=== PATIENT | female | born 1995 | race Caucasian/White ===

== ENCOUNTER 2016-05-31 14:14 | Emergency (ER) | payer OTHER ==
--- NOTE | 2016-05-31 17:04 | ED CLINICAL REPORT ---
Clinical Report - Physicians/Mid Levels [facility] [address] [place] [place] [address] 05/31/2016 14:15 [id number] Time Seen: 15:29 May 31 2016. Arrived- By private vehicle. HISTORY OF PRESENT ILLNESS Chief Complaint: BACK PAIN. It is described as being mild and in the area of the lower lumbar spine. Quality not described as "pain". Onset was just prior to arrival and it is still present. No bowel dysfunction or sensory loss. Additional history - Reports while attempting to go from sitting to standing position today, Developed pain to her back, cramping sensation. He has been constant. Reports pain worse with movement. Patient denies an injury. REVIEW OF SYSTEMS No fever, chills, headache, cough or difficulty breathing. No vomiting, diarrhea, urinary frequency or hematuria. All systems otherwise negative, except as recorded above. PAST HISTORY Has not had a prior back injury. Has not had prior back pain. Problems: Biliary Colic. Hyponatremia. Abdominal Pain. Gastroesophageal Reflux. Chest Pain. Additional Surgeries: no known surgeries. Medications: None. Allergies: No Known Drug Allergy. SOCIAL HISTORY Never smoker. Alcohol use. No drug use. Not an IV drug user. ADDITIONAL NOTES The nursing notes have been reviewed. PHYSICAL EXAM Vital Signs: 05/31/2016 14:40 BP: 121/68. HR: 88. RR: 16. O2 saturation: 100%. Temp: 98.2 F. Pain level now: 9/10. Appearance: Alert. HEENT: Normal external inspection. Neck: Normal inspection. Neck nontender. No vertebral tenderness. CVS: Normal heart rate and rhythm. Heart sounds normal. Respiratory: No respiratory distress. Breath sounds normal. No chest wall injury. Abdomen: Normal inspection. Soft. No abdominal tenderness. Back: Normal inspection. No tenderness. Soft tissue tenderness. No vertebral point tenderness. Skin: Skin warm. Normal skin color. Neuro: Oriented X 3. Mood/affect normal. No motor deficit. No sensory deficit. Normal gait. PROGRESS AND PROCEDURES Course of Care: patient here in the ER, with no red flags. Able to ambulate. At rest her pain is subsiding. She has no radiation of pain, no distal pain. Good distal range of motion. No history of IV drug abuse. No signs or concern for cauda equina, spinal cord abscess or mass. No concern for cystitis, symptoms are not consistent with such. No abdominal pain. Patient is stable. Patient/family counseled. Disposition: Discharged. Condition: good. CLINICAL IMPRESSION Sprain of the lumbar spine. INSTRUCTIONS Limit lifting. No strenuous activity. Do not work for three days. (HEAT). Prescription Medications: Hydrocodone/APAP 7.5mg / 325mg: take 1 orally every 6 hours as needed for pain. Dispense twelve (12). No refill. Valium 2 mg: take 1 orally every 12 hours for 5 days as needed for muscle spasm. Dispense ten (10). No refill. Substitution is permissible. OTC Medications: Motrin IB 200 mg (available over the counter): take 4 orally every 8 hours for 5 days, as needed for pain or swelling Follow-up: Follow up with your doctor in three. (Electronically signed by Melany Virk P.A.-C 05/31/2016 20:00)
--- NOTE | 2016-05-31 17:04 | ED ORDER SUMMARY ---
..... Patient: MAURA FERNÁNDEZ OrderSheet [facility] VisitID: [id number] [place] [address] 21y, F Registration Date/Time: 05/31/2016 ORDER SHEET Weight: 74.8 kg (stated) Allergies: No Known Drug Allergy GENERAL ORDERS: MEDICATION ORDERS: Valium PO 5 mg (HIGH ALERT MEDICATION, NOW) (14:54 05/31/2016 EKorolebeth P.A.-C) (14:58 Michael R.N.) Toradol IM 60 mg (NOW) (16:01 05/31/2016 EKoroleva P.A.-C) (16:06 Michael R.N.) IV FLUIDS: Clindamycin IV 900 mg/50mL (NOW) (16:47 05/31/2016 EKoroleva P.A.-C) (Cancelled: Other17:08 EKoroleva P.A.-C) ORDER SHEET NOTES: [Electronically signed by Maria E Casas R.N. (17:42 05/31/2016)] [Electronically signed by Melany Virk P.AMarcelo-C (20:00 05/31/2016)] [Electronically locked/signed by Maria E Casas R.N. (17:42 05/31/2016)]
--- NOTE | 2016-05-31 17:04 | ED NURSING NOTES ---
Clinical Report - Nurses [facility] [address] [place] [address] 05/31/2016 14:15 Patient: MAURA FERNÁNDEZ TRIAGE Triage time 14:40 May 31 2016. Acuity: LEVEL 4. Chief Complaint: BACK PAIN. 14:40 05/31/16. SEPSIS SCREEN: Sepsis Screen: negative. Negative (no infection suspected/documented). --14:45 Maria E Casas R.N. 14:40 05/31/16. BP: 121/68. HR: 88. RR: 16. O2 saturation: 100%. Temp: 98.2 F. Pain level now: 01/23. --14:45 Maria E Casas R.N. Weight: 74.8 kg stated. Height/Length: 62 inches Per Patient. BMI: 30.2. --14:39 Maria E Casas R.N. Medications None. --14:42 Maria E Casas R.N. Allergies No Known Drug Allergy. --14:42 Maria E Casas R.N. Medication/allergy information source: the patient. --14:45 Maria E Casas R.N. History Arrived by private vehicle. Historian: patient. Accompanied by friend. This started today. ( 730 am onset today. no falls or other trauma, just states in "locked up"). She has had trouble walking. No history of recent trauma. No numbness, weakness, tingling, fever or extremity pain. Treatment HEAD OF ACQUISITIONS: None. (hydrocodone). PAST MEDICAL HX: Last normal menstrual period- 1 weeks ago. SOCIAL HX: Never smoker. Occasional alcohol use. No drug use. No infectious disease exposure. ABUSE ASSESSMENT: No report of abuse. SELF HARM ASSESSMENT: A self harm assessment was performed. The patient answered "no" to the question "Have you recently felt down, depressed, or hopeless?", "Have you noticed less interest or pleasure in doing things?", "Do you have thoughts of harming or killing yourself?", "Are you here because you tried to hurt yourself?", "Have you ever tried to hurt yourself before today?", "Have you recently had thoughts about harming or killing others?" and "Do you have any dangerous items in your possession?". FALL RISK ASSESSMENT: Fall risk assessment completed. No fall risk identified. NUTRITIONAL RISK ASSESSMENT: The nutritional risk assessment revealed no deficiencies. FUNCTIONAL ASSESSMENT: Functional assessment: no impairments noted. LEARNING NEEDS ASSESSMENT: The learning needs assessment revealed no barriers. SKIN INTEGRITY ASSESSMENT: Skin integrity risk assessment completed. No skin integrity risk identified. --14:45 Maria E Casas R.N. PROBLEMS: Biliary Colic. Hyponatremia. Gastroesophageal Reflux. --14:42 Maria E Cassa R.N. ADDITIONAL SURGERIES: no known surgeries. Interventions ID band on patient. --14:45 MariaE Casas R.N. PHYSICAL ASSESSMENT 14:40 05/31/16. To room via wheelchair. Patient gowned. GENERAL / NEURO / PSYCH: Alert. Oriented X 4. Appears in pain. No numbness. RESPIRATORY: Respirations not labored. Chest nontender. Breath sounds within normal limits. GI / : Abdomen soft and nontender. EXTREMITIES: Sensation intact in extremities. ROM of extremities within normal limits. BACK: Normal inspection of the neck and back. Soft tissue tenderness. --14:48 Maria E Casas R.N. NURSING PROGRESS NOTES 14:40 05/31/16. The initial plan of care for this patient includes an assessment with efforts to address the presence of pain; impairment of the musculoskeletal system. This plan of care was discussed with the patient. Patient gowned. Reassurance given to the patient. Patient identifiers checked. Call light placed in reach. Side rails up x 1. Bed placed in lowest position. Brakes of bed on. Patient ready for evaluation. --14:49 Maria E Casas R.N. 14:58 05/31/2016 Valium (Diazepam) PO Tablets 5 mg given. Allergies verified, confirmed 5 rights and sedative warning given to the patient and patient's technical solutions director. --14:58 Maria E Casas R.N. 16:01 05/31/16. The patient has had no adverse reaction. Overall patient status is the same- she states feels the same. BACK: The patient reports lower back pain is still present. --16:01 Maria E Cassa R.N. 16:05 05/31/2016 Toradol (Ketorolac Tromethamine) IM 60 mg given. Given in the right gluteus antonella. Allergies verified and confirmed 5 rights. --16:06 Maria E Casas R.N. DISPOSITION / DISCHARGE 17:22 05/31/16. Condition at departure: improved and stable. The goals identified in the patient's plan of care were met. No learning barriers present. Discharge instructions provided and reviewed with the patient. Reviewed medication(s) side effects, precautions, dosing and course information. Prescription(s) given to the patient. Reviewed referral to a primary care physician for followup. Patient verbalized understanding. Written instructions provided in Malagasy. The patient was discharged home and accompanied by technical solutions director. She left the Emergency Department ambulatory and via private vehicle. Block Cableman driving. FALL RISK ASSESSMENT: Fall risk assessment completed. No fall risk identified. --17:41 Maria E Casas R.N. 17:22 05/31/16. BP: 116/76. HR: 88. RR: 16. O2 saturation: 100%. Temp: 98.6 F. Pain level now 5/10. --17:41 Maria E Casas R.N. Departure time: 17:May 31 2016. --17:41 Maria E Casas R.N. Locked/Released at 05/31/2016 17:42 by Maria E Casas R.N.
--- NOTE | 2016-05-31 17:04 | ED ORDER SUMMARY ---
..... Patient: MAURA FERNÁNDEZ OrderSheet [facility] VisitID: [id number] [place] [address] 21y, F Registration Date/Time: 05/31/2016 ORDER SHEET Weight: 74.8 kg (stated) Allergies: No Known Drug Allergy GENERAL ORDERS: MEDICATION ORDERS: Valium PO 5 mg (HIGH ALERT MEDICATION, NOW) (14:54 05/31/2016 EKorolebeth P.A.-C) (14:58 Michael R.N.) Toradol IM 60 mg (NOW) (16:01 05/31/2016 EKoroleva P.A.-C) (16:06 Michael R.N.) IV FLUIDS: Clindamycin IV 900 mg/50mL (NOW) (16:47 05/31/2016 EKoroleva P.A.-C) (Cancelled: Other17:08 EKoroleva P.A.-C) ORDER SHEET NOTES: [Electronically signed by Maria E Casas R.N. (17:42 05/31/2016)] [Electronically signed by Melany Virk P.AMarcelo-C (20:00 05/31/2016)] [Electronically locked/signed by Maria E Casas R.N. (17:42 05/31/2016)]
--- NOTE | 2016-05-31 17:04 | ED NURSING NOTES ---
Clinical Report - Nurses [facility] [address] [place] [address] 05/31/2016 14:15 Patient: MAURA FERNÁNDEZ TRIAGE Triage time 14:40 May 31 2016. Acuity: LEVEL 4. Chief Complaint: BACK PAIN. 14:40 05/31/16. SEPSIS SCREEN: Sepsis Screen: negative. Negative (no infection suspected/documented). --14:45 Maria E Casas R.N. 14:40 05/31/16. BP: 121/68. HR: 88. RR: 16. O2 saturation: 100%. Temp: 98.2 F. Pain level now: 01/23. --14:45 Maria E Casas R.N. Weight: 74.8 kg stated. Height/Length: 62 inches Per Patient. BMI: 30.2. --14:39 Maria E Casas R.N. Medications None. --14:42 Maria E Casas R.N. Allergies No Known Drug Allergy. --14:42 Maria E Casas R.N. Medication/allergy information source: the patient. --14:45 Maria E Casas R.N. History Arrived by private vehicle. Historian: patient. Accompanied by friend. This started today. ( 730 am onset today. no falls or other trauma, just states in "locked up"). She has had trouble walking. No history of recent trauma. No numbness, weakness, tingling, fever or extremity pain. Treatment DIESEL ENGINE MECHANIC APPRENTICE: None. (hydrocodone). PAST MEDICAL HX: Last normal menstrual period- 1 weeks ago. SOCIAL HX: Never smoker. Occasional alcohol use. No drug use. No infectious disease exposure. ABUSE ASSESSMENT: No report of abuse. SELF HARM ASSESSMENT: A self harm assessment was performed. The patient answered "no" to the question "Have you recently felt down, depressed, or hopeless?", "Have you noticed less interest or pleasure in doing things?", "Do you have thoughts of harming or killing yourself?", "Are you here because you tried to hurt yourself?", "Have you ever tried to hurt yourself before today?", "Have you recently had thoughts about harming or killing others?" and "Do you have any dangerous items in your possession?". FALL RISK ASSESSMENT: Fall risk assessment completed. No fall risk identified. NUTRITIONAL RISK ASSESSMENT: The nutritional risk assessment revealed no deficiencies. FUNCTIONAL ASSESSMENT: Functional assessment: no impairments noted. LEARNING NEEDS ASSESSMENT: The learning needs assessment revealed no barriers. SKIN INTEGRITY ASSESSMENT: Skin integrity risk assessment completed. No skin integrity risk identified. --14:45 Maria E Casas R.N. PROBLEMS: Biliary Colic. Hyponatremia. Gastroesophageal Reflux. --14:42 Maria E Casas R.N. ADDITIONAL SURGERIES: no known surgeries. Interventions ID band on patient. --14:45 Maria E Casas R.N. PHYSICAL ASSESSMENT 14:40 05/31/16. To room via wheelchair. Patient gowned. GENERAL / NEURO / PSYCH: Alert. Oriented X 4. Appears in pain. No numbness. RESPIRATORY: Respirations not labored. Chest nontender. Breath sounds within normal limits. GI / : Abdomen soft and nontender. EXTREMITIES: Sensation intact in extremities. ROM of extremities within normal limits. BACK: Normal inspection of the neck and back. Soft tissue tenderness. --14:48 Maria E Casas R.N. NURSING PROGRESS NOTES 14:40 05/31/16. The initial plan of care for this patient includes an assessment with efforts to address the presence of pain; impairment of the musculoskeletal system. This plan of care was discussed with the patient. Patient gowned. Reassurance given to the patient. Patient identifiers checked. Call light placed in reach. Side rails up x 1. Bed placed in lowest position. Brakes of bed on. Patient ready for evaluation. --14:49 Maria E Casas R.N. 14:58 05/31/2016 Valium (Diazepam) PO Tablets 5 mg given. Allergies verified, confirmed 5 rights and sedative warning given to the patient and patient's tribal judge. --14:58 Maria E Casas R.N. 16:01 05/31/16. The patient has had no adverse reaction. Overall patient status is the same- she states feels the same. BACK: The patient reports lower back pain is still present. --16:01 Maria E Casas R.N. 16:05 05/31/2016 Toradol (Ketorolac Tromethamine) IM 60 mg given. Given in the right gluteus antonella. Allergies verified and confirmed 5 rights. --16:06 Maria E Casas R.N. DISPOSITION / DISCHARGE 17:22 05/31/16. Condition at departure: improved and stable. The goals identified in the patient's plan of care were met. No learning barriers present. Discharge instructions provided and reviewed with the patient. Reviewed medication(s) side effects, precautions, dosing and course information. Prescription(s) given to the patient. Reviewed referral to a primary care physician for followup. Patient verbalized understanding. Written instructions provided in Algerian. The patient was discharged home and accompanied by tribal judge. She left the Emergency Department ambulatory and via private vehicle. Building Energy Retrofit Technician driving. FALL RISK ASSESSMENT: Fall risk assessment completed. No fall risk identified. --17:41 Maria E Casas R.N. 17:22 05/31/16. BP: 116/76. HR: 88. RR: 16. O2 saturation: 100%. Temp: 98.6 F. Pain level now 5/10. --17:41 Maria E Casas R.N. Departure time: 17:May 31 2016. --17:41 Maria E Casas R.N. Locked/Released at 05/31/2016 17:42 by Maria E Casas R.N.
--- NOTE | 2016-05-31 17:04 | ED CLINICAL REPORT ---
Clinical Report - Physicians/Mid Levels [facility] [address] [place] [address] 05/31/2016 14:15 [id number] Time Seen: 15:29 May 31 2016. Arrived- By private vehicle. HISTORY OF PRESENT ILLNESS Chief Complaint: BACK PAIN. It is described as being mild and in the area of the lower lumbar spine. Quality not described as "pain". Onset was just prior to arrival and it is still present. No bowel dysfunction or sensory loss. Additional history - Reports while attempting to go from sitting to standing position today, Developed pain to her back, cramping sensation. He has been constant. Reports pain worse with movement. Patient denies an injury. REVIEW OF SYSTEMS No fever, chills, headache, cough or difficulty breathing. No vomiting, diarrhea, urinary frequency or hematuria. All systems otherwise negative, except as recorded above. PAST HISTORY Has not had a prior back injury. Has not had prior back pain. Problems: Biliary Colic. Hyponatremia. Abdominal Pain. Gastroesophageal Reflux. Chest Pain. Additional Surgeries: no known surgeries. Medications: None. Allergies: No Known Drug Allergy. SOCIAL HISTORY Never smoker. Alcohol use. No drug use. Not an IV drug user. ADDITIONAL NOTES The nursing notes have been reviewed. PHYSICAL EXAM Vital Signs: 05/31/2016 14:40 BP: 121/68. HR: 88. RR: 16. O2 saturation: 100%. Temp: 98.2 F. Pain level now: 9/10. Appearance: Alert. HEENT: Normal external inspection. Neck: Normal inspection. Neck nontender. No vertebral tenderness. CVS: Normal heart rate and rhythm. Heart sounds normal. Respiratory: No respiratory distress. Breath sounds normal. No chest wall injury. Abdomen: Normal inspection. Soft. No abdominal tenderness. Back: Normal inspection. No tenderness. Soft tissue tenderness. No vertebral point tenderness. Skin: Skin warm. Normal skin color. Neuro: Oriented X 3. Mood/affect normal. No motor deficit. No sensory deficit. Normal gait. PROGRESS AND PROCEDURES Course of Care: patient here in the ER, with no red flags. Able to ambulate. At rest her pain is subsiding. She has no radiation of pain, no distal pain. Good distal range of motion. No history of IV drug abuse. No signs or concern for cauda equina, spinal cord abscess or mass. No concern for cystitis, symptoms are not consistent with such. No abdominal pain. Patient is stable. Patient/family counseled. Disposition: Discharged. Condition: good. CLINICAL IMPRESSION Sprain of the lumbar spine. INSTRUCTIONS Limit lifting. No strenuous activity. Do not work for three days. (HEAT). Prescription Medications: Hydrocodone/APAP 7.5mg / 325mg: take 1 orally every 6 hours as needed for pain. Dispense twelve (12). No refill. Valium 2 mg: take 1 orally every 12 hours for 5 days as needed for muscle spasm. Dispense ten (10). No refill. Substitution is permissible. OTC Medications: Motrin IB 200 mg (available over the counter): take 4 orally every 8 hours for 5 days, as needed for pain or swelling Follow-up: Follow up with your doctor in three. (Electronically signed by Melany Virk P.A.-C 05/31/2016 20:00)
--- NOTE | 2016-05-31 20:01 | ED MAR SUMMARY ---
..... Medication Administration Record [facility] [address] [place] [address] Patient: MAURA FERNÁNDEZ Visit ID: [id number] 21y, F Weight: 74.8 kg Height/Length: 62 in BMI: 30.2 ALLERGIES: No Known Drug Allergy Given 14:58 05/31/2016 Maria E Casas R.N. Medication Administered: VALIUM [PO] (DIAZEPAM), Dose: 5 mg Tablets PO. Medication Ordered: Valium PO 5 mg (HIGH ALERT MEDICATION, NOW). Given 16:05 05/31/2016 Maria E Casas R.N. Medication Administered: TORADOL [IM] (KETOROLAC TROMETHAMINE), Dose: 60 mg IM. Medication Ordered: Toradol IM 60 mg (NOW).
--- NOTE | 2016-05-31 20:01 | ED MAR SUMMARY ---
..... Medication Administration Record [facility] [address] [place] [address] Patient: MAURA FERNÁNDEZ Visit ID: [id number] 21y, F Weight: 74.8 kg Height/Length: 62 in BMI: 30.2 ALLERGIES: No Known Drug Allergy Given 14:58 05/31/2016 Maria E Casas R.N. Medication Administered: VALIUM [PO] (DIAZEPAM), Dose: 5 mg Tablets PO. Medication Ordered: Valium PO 5 mg (HIGH ALERT MEDICATION, NOW). Given 16:05 05/31/2016 Maria E Casas R.N. Medication Administered: TORADOL [IM] (KETOROLAC TROMETHAMINE), Dose: 60 mg IM. Medication Ordered: Toradol IM 60 mg (NOW).
--- NOTE | 2016-05-31 20:01 | ED MED RECONCILIATION SUMMARY ---
Patient: MAURA FERNÁNDEZ Medication Reconciliation Report [facility] VisitID: [id number] [place] [address] 21y, F Registration Date/Time: 05/31/2016 Weight: 74.8 kg Height/Length: 62 in. BMI: 30.2 ALLERGIES: No Known Drug Allergy The patient's Home Medications are listed below: NONE. The source(s) of the original Home Medication information: patient The following Medications were given to the patient in the Emergency Department: Valium [PO] PO 5 mg, administered: 05/31/2016 2:58:00 PM Toradol [IM] IM 60 mg, administered: 05/31/2016 4:05:00 PM The following Medications were prescribed to the patient: Motrin IB 200 mg (available over the counter): take 4 orally every 8 hours for 5 days, as needed for pain or swelling -- Melany Virk, P.A.-C Hydrocodone/APAP 7.5mg / 325mg: take 1 orally every 6 hours as needed for pain. Dispense twelve (12). No refill. -- Melany Virk, P.A.-C Valium 2 mg: take 1 orally every 12 hours for 5 days as needed for muscle spasm. Dispense ten (10). No refill. Substitution is permissible. -- Melany Virk, P.A.-C
--- NOTE | 2016-05-31 20:01 | ED DISCHARGE INSTRUCTIONS ---
Patient: MAURA FERNÁNDEZ General Instructions [facility] VisitID: [id number] [place] [address] 21y, F Registration Date/Time: 05/31/2016 Sprain of the lumbar spine. INSTRUCTIONS Limit lifting. No strenuous activity. Do not work for three days. (HEAT). Prescription Medications: Hydrocodone/APAP 7.5mg / 325mg: take 1 orally every 6 hours as needed for pain. Dispense twelve (12). No refill. Valium 2 mg: take 1 orally every 12 hours for 5 days as needed for muscle spasm. Dispense ten (10). No refill. Substitution is permissible. OTC Medications: Motrin IB 200 mg (available over the counter): take 4 orally every 8 hours for 5 days, as needed for pain or swelling Follow-up: Follow up with your doctor in three. ADDITIONAL INFORMATION Back Pain [Acute Or Chronic] Back pain is usually caused by an injury to the muscles or ligaments of the spine. Sometimes the disks that separate each bone in the spine may bulge and cause pain by pressing on a nearby nerve. Back pain may also appear after a sudden twisting/bending force (such as in a car accident), after a simple awkward movement, or lifting something heavy with poor body positioning. In either case, muscle spasm is often present and adds to the pain. Acute back pain usually gets better in one to two weeks. Back pain related to disk disease, arthritis in the spinal joints or spinal stenosis (narrowing of the spinal canal) can become chronic and last for months or years. Unless you had a physical injury (for example, a car accident or fall) X-rays are usually not ordered for the initial evaluation of back pain. If pain continues and does not respond to medical treatment, x-rays and other tests may be performed at a later time. Home Care: You may need to stay in bed the first few days. But, as soon as possible, begin sitting or walking to avoid problems with prolonged bed rest (muscle weakness, worsening back stiffness and pain, blood clots in the legs). When in bed, try to find a position of comfort. A firm mattress is best. Try lying flat on your back with pillows under your knees. You can also try lying on your side with your knees bent up towards your chest and a pillow between your knees. Avoid prolonged sitting. This puts more stress on the lower back than standing or walking. During the first two days after injury, apply an ICE PACK to the painful area for 20 minutes every 2-4 hours. This will reduce swelling and pain. HEAT (hot shower, hot bath or heating pad) works well for muscle spasm. You can start with ice, then switch to heat after two days. Some patients feel best alternating ice and heat treatments. Use the one method that feels the best to you. You may use acetaminophen (Tylenol) or ibuprofen (Motrin, Advil) to control pain, unless another pain medicine was prescribed. [NOTE: If you have chronic liver or kidney disease or ever had a stomach ulcer or GI bleeding, talk with your doctor before using these medicines.] Be aware of safe lifting methods and do not lift anything over 15 pounds until all the pain is gone. Follow Up with your doctor or this facility if your symptoms do not start to improve after one week. Physical therapy may be needed. [NOTE: If X-rays were taken, they will be reviewed by a radiologist. You will be notified of any new findings that may affect your care.] Get Prompt Medical Attention if any of the following occur: Pain becomes worse or spreads to your legs Weakness or numbness in one or both legs Loss of bowel or bladder control Numbness in the groin or genital area Hydrocodone Bitartrate, Acetaminophen Oral tablet What is this medicine? ACETAMINOPHEN; HYDROCODONE (a set a CATHIE rona fen; oleksandr droe KOE done) is a pain reliever. It is used to treat mild to moderate pain. How should I use this medicine? Take this medicine by mouth. Swallow it with a full glass of water. Follow the directions on the prescription label. If the medicine upsets your stomach, take the medicine with food or milk. Do not take more than you are told to take. Talk to your biomedical engineering technologist regarding the use of this medicine in children. This medicine is not approved for use in children. What side effects may I notice from receiving this medicine? Side effects that you should report to your doctor or health daycare provider as soon as possible: allergic reactions like skin rash, itching or hives, swelling of the face, lips, or tongue breathing problems confusion feeling faint or lightheaded, falls stomach pain yellowing of the eyes or skin Side effects that usually do not require medical attention (report to your doctor or health daycare provider if they continue or are bothersome): nausea, vomiting stomach upset What may interact with this medicine? alcohol antihistamines isoniazid medicines for depression, anxiety, or psychotic disturbances medicines for sleep muscle relaxants naltrexone narcotic medicines (opiates) for pain phenobarbital ritonavir tramadol What if I miss a dose? If you miss a dose, take it as soon as you can. If it is almost time for your next dose, take only that dose. Do not take double or extra doses. Where should I keep my medicine? Keep out of the reach of children. This medicine can be abused. Keep your medicine in a safe place to protect it from theft. Do not share this medicine with anyone. Selling or giving away this medicine is dangerous and against the law. Store at room temperature between 15 and 30 degrees C (59 and 86 degrees F). Protect from light. Keep container tightly closed. Throw away any unused medicine after the expiration date. Discard unused medicine and used packaging carefully. Pets and children can be harmed if they find used or lost packages. What should I tell my health care provider before I take this medicine? They need to know if you have any of these conditions: brain tumor Crohn's disease, inflammatory bowel disease, or ulcerative colitis drink more than 3 alcohol-containing drinks per day drug abuse or addiction head injury heart or circulation problems kidney disease or problems going to the bathroom liver disease lung disease, asthma, or breathing problems an unusual or allergic reaction to acetaminophen, hydrocodone, other opioid analgesics, other medicines, foods, dyes, or preservatives or trying to get breast-feeding What should I watch for while using this medicine? Tell your doctor or health daycare provider if your pain does not go away, if it gets worse, or if you have new or a different type of pain. You may develop tolerance to the medicine. Tolerance means that you will need a higher dose of the medicine for pain relief. Tolerance is normal and is expected if you take the medicine for a long time. Do not suddenly stop taking your medicine because you may develop a severe reaction. Your body becomes used to the medicine. This does NOT mean you are addicted. Addiction is a behavior related to getting and using a drug for a non-medical reason. If you have pain, you have a medical reason to take pain medicine. Your doctor will tell you how much medicine to take. If your doctor wants you to stop the medicine, the dose will be slowly lowered over time to avoid any side effects. You may get drowsy or dizzy when you first start taking the medicine or change doses. Do not drive, use machinery, or do anything that may be dangerous until you know how the medicine affects you. Stand or sit up slowly. There are different types of narcotic medicines (opiates) for pain. If you take more than one type at the same time, you may have more side effects. Give your health care provider a list of all medicines you use. Your doctor will tell you how much medicine to take. Do not take more medicine than directed. Call emergency for help if you have problems breathing. The medicine will cause constipation. Try to have a bowel movement at least every 2 to 3 days. If you do not have a bowel movement for 3 days, call your doctor or health daycare provider. Too much acetaminophen can be very dangerous. Do not take Tylenol (acetaminophen) or medicines that contain acetaminophen with this medicine. Many non-prescription medicines contain acetaminophen. Always read the labels carefully. Ibuprofen Oral tablet What is this medicine? IBUPROFEN (eye BYOO proe fen) is a non-steroidal anti-inflammatory drug (NSAID). It is used for dental pain, fever, headaches or migraines, osteoarthritis, rheumatoid arthritis, or painful monthly periods. It can also relieve minor aches and pains caused by a cold, flu, or sore throat. How should I use this medicine? Take this medicine by mouth with a glass of water. Follow the directions on the prescription label. Take this medicine with food if your stomach gets upset. Try to not lie down for at least 10 minutes after you take the medicine. Take your medicine at regular intervals. Do not take your medicine more often than directed. A special MedGuide will be given to you by the pharmacist with each prescription and refill. Be sure to read this information carefully each time. Talk to your biomedical engineering technologist regarding the use of this medicine in children. Special care may be needed. What side effects may I notice from receiving this medicine? Side effects that you should report to your doctor or health daycare provider as soon as possible: allergic reactions like skin rash, itching or hives, swelling of the face, lips, or tongue black or bloody stools, blood in the urine or in vomit breathing problems changes in vision chest pain general ill feeling or flu-like symptoms nausea or vomiting redness, blistering, peeling or loosening of the skin, including inside the mouth slurred speech or weakness on one side of the body stomach pain unexplained weight gain or swelling unusually weak or tired yellowing of eyes or skin Side effects that usually do not require medical attention (report to your doctor or health daycare provider if they continue or are bothersome): constipation or diarrhea dizziness gas or heartburn stomach upset What may interact with this medicine? Do not take this medicine with any of the following medications: cidofovir ketorolac methotrexate pemetrexed This medicine may also interact with the following medications: alcohol aspirin diuretics lithium other drugs for inflammation like prednisone warfarin What if I miss a dose? If you miss a dose, take it as soon as you can. If it is almost time for your next dose, take only that dose. Do not take double or extra doses. Where should I keep my medicine? Keep out of the reach of children. Store at room temperature between 15 and 30 degrees C (59 and 86 degrees F). Keep container tightly closed. Throw away any unused medicine after the expiration date. What should I tell my health care provider before I take this medicine? They need to know if you have any of these conditions: asthma cigarette smoker drink more than 3 alcohol containing drinks a day heart disease or circulation problems such as heart failure or leg edema (fluid retention) high blood pressure kidney disease liver disease stomach bleeding or ulcers an unusual or allergic reaction to ibuprofen, aspirin, other NSAIDS, other medicines, foods, dyes, or preservatives or trying to get breast-feeding What should I watch for while using this medicine? Tell your doctor or healthcare professional if your symptoms do not start to get better or if they get worse. This medicine does not prevent heart attack or stroke. In fact, this medicine may increase the chance of a heart attack or stroke. The chance may increase with longer use of this medicine and in people who have heart disease. If you take aspirin to prevent heart attack or stroke, talk with your doctor or health daycare provider. Do not take other medicines that contain aspirin, ibuprofen, or naproxen with this medicine. Side effects such as stomach upset, nausea, or ulcers may be more likely to occur. Many medicines available without a prescription should not be taken with this medicine. This medicine can cause ulcers and bleeding in the stomach and intestines at any time during treatment. Ulcers and bleeding can happen without warning symptoms and can cause . To reduce your risk, do not smoke cigarettes or drink alcohol while you are taking this medicine. You may get drowsy or dizzy. Do not drive, use machinery, or do anything that needs mental alertness until you know how this medicine affects you. Do not stand or sit up quickly, especially if you are an older patient. This reduces the risk of dizzy or fainting spells. This medicine can cause you to bleed more easily. Try to avoid damage to your teeth and gums when you brush or floss your teeth. You have been given the following additional information: Back Pain (Acute Or Chronic) Hydrocodone Bitartrate, Acetaminophen Oral tablet Ibuprofen Oral tablet Limit lifting. No strenuous activity. Do not work for three days. (Electronically signed by Melany Virk P.A.-C 05/31/2016 20:00)
--- NOTE | 2016-05-31 20:01 | ED MED RECONCILIATION SUMMARY ---
Patient: MAURA FERNÁNDEZ Medication Reconciliation Report [facility] VisitID: [id number] [place] [address] 21y, F Registration Date/Time: 05/31/2016 Weight: 74.8 kg Height/Length: 62 in. BMI: 30.2 ALLERGIES: No Known Drug Allergy The patient's Home Medications are listed below: NONE. The source(s) of the original Home Medication information: patient The following Medications were given to the patient in the Emergency Department: Valium [PO] PO 5 mg, administered: 05/31/2016 2:58:00 PM Toradol [IM] IM 60 mg, administered: 05/31/2016 4:05:00 PM The following Medications were prescribed to the patient: Motrin IB 200 mg (available over the counter): take 4 orally every 8 hours for 5 days, as needed for pain or swelling -- Melany Virk, P.A.-C Hydrocodone/APAP 7.5mg / 325mg: take 1 orally every 6 hours as needed for pain. Dispense twelve (12). No refill. -- Melany Virk, P.A.-C Valium 2 mg: take 1 orally every 12 hours for 5 days as needed for muscle spasm. Dispense ten (10). No refill. Substitution is permissible. -- Melany Virk, P.A.-C
== END 2016-05-31 17:22 | disposition home or self-care (01) ==
LOC: ED SRH 14:14
DX: S33.5XXA Sprain of ligaments of lumbar spine, initial encounter (principal); X50.0XXA Overexertion from strenuous movement or load, initial encounter

== ENCOUNTER 2016-11-29 17:32 | Outpatient (CLI) | payer OTHER | END 2016-11-29 23:00 | LOC: LAB SRH 17:32 | DX: O20.0 Threatened abortion (principal) | CPT/HCPCS: 90001; 90074; 90155; 90197; 90469; 90851; 91004; 93073; 93140; 95059 ==